=== PATIENT | female | born 1970 | race Caucasian/White ===

== ENCOUNTER 2018-08-09 11:19 | Emergency (ER) | payer BC ==
[2018-08-09] MEDS ORDERED: NS 0.9% 1000 ML* 1,000 ML IV ONE (11:50)
[2018-08-09] MEDS ORDERED: Morphine INJ* 4 MG/ML 1 ML SYRINGE (NEW SYRINGE VERSION) IV ONE ×2 (11:52→12:16)
[2018-08-09] MEDS ORDERED: Ondansetron INJ* 2 MG/ML VIAL IV ONE (11:52)
[2018-08-09 12:06] LABS: ABS Basophils 0.1 10^3/ul (0-0.2); ABS Eosinophils 0.2 10^3/ul (0-0.6); ABS Lymphocytes 2.1 10^3/ul (1.0-4.8); ABS Monocytes 0.5 10^3/ul (0-0.8); ABS Neutrophils 3.1 10^3/ul (1.5-7.7); ABS Nucleated RBC 0 10^3/ul; Eosinophil % 3.2 % (0-6); Hematocrit 43 % (35-47); Hemoglobin 14.1 g/dl (12.0-16.0); Lymphocyte % 35.1 % (25-47); Mean Corpuscular HGB Conc 33 g/dl (31-36); Mean Corpuscular Hemoglobin 30 pg (27-31); Mean Corpuscular Volume 89 fL (80-97); Mean Platelet Volume 8.1 um3 (7.4-10.4); Nucleated Red Blood Cells % 0; Platelet Count 280 10^3/ul (150-450); Red Blood Count 4.79 10^6/ul (4.00-5.40); Red Cell Distribution Width 14 % (10.5-15)
[2018-08-09] MEDS ORDERED: Acetaminophen TAB* 325 MG PO ONE (12:14)
[2018-08-09] MEDS ORDERED: metroNIDAZOLE TAB* 250 MG PO ONE (12:14)
[2018-08-09] MEDS ORDERED: cefTRIAXone VIAL(*) 250 MG VIAL IM ONE (12:14)
[2018-08-09] MEDS ORDERED: Raltegravir* 400 MG TAB PO ONE (12:14)
[2018-08-09] MEDS ORDERED: Levonorgestrel 1.5 MG TAB PO ONE (12:14)
[2018-08-09] MEDS ORDERED: Tenofovir/Emtricitab 200/300 * TAB PO ONE (12:14)
[2018-08-09] MEDS ORDERED: Azithromycin TAB* 250 MG PO ONE (12:14)
[2018-08-09 12:16] LABS: INR 0.98 (0.77-1.02)
[2018-08-09 12:25] LABS: EGFR Non-African American 81.8 (>60)
--- NOTE | 2018-08-09 12:31 | RAD ---
INDICATION: Right lower quadrant pain. COMPARISON: There are no relevant prior studies available for comparison. TECHNIQUE: Multiple real-time images of the right lower quadrant were obtained using a graded compression technique. FINDINGS: No free intraperitoneal fluid or localized fluid collections are seen. The appendix was not visualized limiting the study. IMPRESSION: THE APPENDIX WAS NOT VISUALIZED LIMITING THE STUDY, DEPENDING ON THE PATIENT'S CLINICAL STATUS CONSIDER A CT OF THE ABDOMEN AND PELVIS WITH INTRAVENOUS AND ORAL CONTRAST FOR FURTHER EVALUATION.
--- NOTE | 2018-08-09 12:39 | RAD ---
INDICATION: Right lower quadrant pain. COMPARISON: Comparison is made with a prior pelvic ultrasound from every second 2008. TECHNIQUE: Multiple real-time transabdominal images of the pelvis were obtained. FINDINGS: The uterus is normal in size and shape. The uterus measured 9.2 x 4.1 x 5.3 cm. The endometrial echo measured 0.9 cm in thickness. There is a small hypoechoic mass in the anterior portion of the body of the uterus consistent with a leiomyoma measuring 2.1 x 2.7 x 2.0 cm. The right ovary measured 2.1 x 1.8 x 1.3 cm. The left ovary measured 4.1 x 2.6 x 3.2 cm. There is vascular flow within both ovaries. There is a small slightly complex cyst present within the left ovary with a thin internal septation measuring 2.5 x 2.3 x 2.3 cm. No free intraperitoneal fluid is seen. IMPRESSION: 1. SMALL SLIGHTLY COMPLEX LEFT OVARIAN CYST. 2. SMALL INTRAMURAL LEIOMYOMA.
--- NOTE | 2018-08-09 12:39 | ED ---
Abdominal Pain/Female - HPI Summary HPI Summary: Patient presents with abrupt onset right-sided abdominal pain that started at 3 AM this morning. This pain woke her from sleep and was 10 out of 10. Currently she is about a 5 out of 10 in pain. She reports this as sharp stabbing pain with associated symptoms of nausea intermittently. No vomiting or diarrhea. She denies fever, chills, chest pain, shortness of breath. She has had 2 C-sections, otherwise no abdominal surgeries. She admits currently her menstrual cycle is "all over the place". Sometimes she has her period multiple times a month and sometimes she skips month; sometimes the flow is light, sometimes it's heavy. She is being followed by her primary care provider for this condition. She denies any bleeding vaginally at this time. She also denies any change in her vaginal discharge including odor, consistency , irritation as well as h/o vaginal infection. She is sexually active with her and denies dyspareunia. Of note, her recent medical history includes workup for her urinary tract. She went to [facility] for her annual physical exam about 1 month ago and they discovered painless hematuria. Patient reports she did have intermittent cramping at times in her lower pelvis but nothing consistent. With these findings, she was referred to a urologist. She's had a CT of her abdomen and pelvis with contrast 3 weeks ago which revealed a cyst on her right kidney. Last week she had a cystoscopy - she believes some biopsies were taken and when asked if there are any abnormalities found, she said "no". She also had an ultrasound of her right kidney yesterday - unsure of results but has a follow- up with urology this week. Throughout the course of this workup, she denies having pain symptoms like she is having today. She does report urinary urge with frequency and small void volume since cystoscopy. Reports she has not taken any medication since cystoscopy and again denies flank pain, fever, chills , nausea other than with pain this morning and no vomiting or diarrhea. Bowel movements have been normal for her. Fam h/o sig for ovarian CA, esophageal CA. - History of Current Complaint Chief Complaint: EDFlankPain Stated Complaint: FLANK PAIN Time Seen by Provider: 08/09/18 11:32 Hx Obtained From: Patient, Family/Parts Classifier - mom Pain Intensity: 7 Allergies/Adverse Reactions: Allergies Allergy/AdvReac Type Severity Reaction Status Date / Time No Known Allergies Allergy Verified 08/09/18 11:30 PMH/Surg Hx/FS Hx/Imm Hx Previously Healthy: Yes Endocrine/Hematology History: Denies: Hx Anticoagulant Therapy, Hx Blood Disorders, Autoimmune Disease History: Reports: Other Problems/Disorders - Rt kidney cyst per pt - evaluated at [facility] urolog Musculoskeletal History: Reports: Hx Rheumatoid Arthritis Sensory History: Reports: Hx Contacts or Glasses Opthamlomology History: Reports: Hx Contacts or Glasses Neurological History: Reports: Hx Migraine - takes rescue med PRN - Cancer History Hx Chemotherapy: No Hx Radiation Therapy: No Infectious Disease History: No Infectious Disease History: Denies: Traveled Outside the [place] in Last 30 Days - Family History Known Family History: Positive: Other - ovarian ca, esophageal ca - Social History Lives: With Family - Alcohol Use: Occasionally Alcohol Amount: special occasions Hx Substance Use: No Substance Use Type: Reports: None Hx Tobacco Use: Yes Smoking Status (MU): Current Every Day Smoker Type: Cigarettes Amount Used/How Often: 1/2-1PPD Have You Smoked in the Last Year: Yes Review of Systems Constitutional: Negative Negative: Fever, Chills, Fatigue Cardiovascular: Negative Respiratory: Negative Positive: Abdominal Pain, Nausea. Negative: Vomiting, Diarrhea Positive: see HPI Skin: Negative Neurological: Negative Psychological: Normal All Other Systems Reviewed And Are Negative: Yes Physical Exam Triage Information Reviewed: Yes Vital Signs On Initial Exam: Initial Vitals Temp Pulse Resp BP Pulse Ox 97.6 F 83 16 150/94 99 08/09/18 11:25 08/09/18 11:25 08/09/18 11:25 08/09/18 11:25 08/09/18 11:25 Vital Signs Reviewed: Yes Appearance: Positive: Well-Appearing, Well-Nourished, Pain Distress - mild at rest - moderate w/ palpation Skin: Positive: Warm, Skin Color Reflects Adequate Perfusion, Dry Head/Face: Positive: Normal Head/Face Inspection Eyes: Positive: Normal, EOMI, Conjunctiva Clear - anicteric sclera ENT: Positive: Hearing grossly normal, Pharynx normal - mucosa moist Neck: Positive: Supple Respiratory/Lung Sounds: Positive: Clear to Auscultation, Breath Sounds Present. Negative: Rales, Rhonchi, Wheezes Cardiovascular: Positive: Normal, RRR, S1, S2. Negative: Leg Edema Left, Leg Edema Right Abdomen Description: Positive: No Organomegaly, Soft, Distended, McBurney's Point Tenderness - no rebounding; mild pain w/ psoas, no pain w/ obturator, no pain w/ heel tap - no other areas of ab. Negative: CVA Tenderness (R), CVA Tenderness (L), Guarding, Hernia @, Pulsatile Mass Bowel Sounds: Positive: Present Pelvic Exam: Positive: Other - deferred Musculoskeletal: Positive: Normal, Strength/ROM Intact Neurological: Positive: Normal, Sensory/Motor Intact, Alert, Oriented to Person Place, Time, CN Intact II-III Psychiatric: Positive: Normal Diagnostics - Vital Signs Vital Signs Temp Pulse Resp BP Pulse Ox 08/09/18 11:25 97.6 F 83 16 150/94 99 - Laboratory Lab Results: Lab Results 08/09/18 08/09/18 08/09/18 Range/Units 11:55 11:55 11:55 WBC 6.0 (3.5-10.8) 10^3/ul RBC 4.79 (4.00-5.40) 10^6/ul Hgb 14.1 (12.0-16.0) g/dl Hct 43 (35-47) % MCV 89 (80-97) fL MCH 30 (27-31) pg MCHC 33 (31-36) g/dl RDW 14 (10.5-15) % Plt Count 280 (150-450) 10^3/ul MPV 8.1 (7.4-10.4) um3 Neut % (Auto) 50.9 (38-83) % Lymph % (Auto) 35.1 (25-47) % [place] % (Auto) 8.9 H (0-7) % Eos % (Auto) 3.2 (0-6) % Baso % (Auto) 1.9 (0-2) % Absolute Neuts (auto) 3.1 (1.5-7.7) 10^3/ul Absolute Lymphs (auto) 2.1 (1.0-4.8) 10^3/ul Absolute Monos (auto) 0.5 (0-0.8) 10^3/ul Absolute Eos (auto) 0.2 (0-0.6) 10^3/ul Absolute Basos (auto) 0.1 (0-0.2) 10^3/ul Absolute Nucleated RBC 0 10^3/ul Nucleated RBC % 0 INR (Anticoag Therapy) 0.98 (0.77-1.02) APTT 34.4 (26.0-36.3) seconds Sodium 139 (135-145) mmol/L Potassium 3.7 (3.5-5.0) mmol/L Chloride 109 (101-111) mmol/L Carbon Dioxide 26 (22-32) mmol/L Anion Gap 4 (2-11) mmol/L BUN 9 (6-24) mg/dL Creatinine 0.75 (0.51-0.95) mg/dL Est GFR ( Amer) 99.0 (>60) Est GFR (Non-Af Amer) 81.8 (>60) BUN/Creatinine Ratio 12.0 (8-20) Glucose 85 (70-100) mg/dL Lactic Acid (0.5-2.0) mmol/L Calcium 9.4 (8.6-10.3) mg/dL Magnesium 2.2 (1.9-2.7) mg/dL Total Bilirubin 0.50 (0.2-1.0) mg/dL AST 13 (13-39) U/L ALT 10 (7-52) U/L Alkaline Phosphatase 52 (34-104) U/L C-Reactive Protein < 1.00 (<8.01) mg/L Total Protein 7.1 (6.4-8.9) g/dL Albumin 4.3 (3.2-5.2) g/dL Globulin 2.8 (2-4) g/dL Albumin/Globulin Ratio 1.5 (1-3) Lipase 23 (11.0-82.0) U/L Beta HCG, Quant 0.82 mIU/mL 08/09/18 Range/Units 11:55 WBC (3.5-10.8) 10^3/ul RBC (4.00-5.40) 10^6/ul Hgb (12.0-16.0) g/dl Hct (35-47) % MCV (80-97) fL MCH (27-31) pg MCHC (31-36) g/dl RDW (10.5-15) % Plt Count (150-450) 10^3/ul MPV (7.4-10.4) um3 Neut % (Auto) (38-83) % Lymph % (Auto) (25-47) % [place] % (Auto) (0-7) % Eos % (Auto) (0-6) % Baso % (Auto) (0-2) % Absolute Neuts (auto) (1.5-7.7) 10^3/ul Absolute Lymphs (auto) (1.0-4.8) 10^3/ul Absolute Monos (auto) (0-0.8) 10^3/ul Absolute Eos (auto) (0-0.6) 10^3/ul Absolute Basos (auto) (0-0.2) 10^3/ul Absolute Nucleated RBC 10^3/ul Nucleated RBC % INR (Anticoag Therapy) (0.77-1.02) APTT (26.0-36.3) seconds Sodium (135-145) mmol/L Potassium (3.5-5.0) mmol/L Chloride (101-111) mmol/L Carbon Dioxide (22-32) mmol/L Anion Gap (2-11) mmol/L BUN (6-24) mg/dL Creatinine (0.51-0.95) mg/dL Est GFR ( Amer) (>60) Est GFR (Non-Af Amer) (>60) BUN/Creatinine Ratio (8-20) Glucose (70-100) mg/dL Lactic Acid 0.8 (0.5-2.0) mmol/L Calcium (8.6-10.3) mg/dL Magnesium (1.9-2.7) mg/dL Total Bilirubin (0.2-1.0) mg/dL AST (13-39) U/L ALT (7-52) U/L Alkaline Phosphatase (34-104) U/L C-Reactive Protein (<8.01) mg/L Total Protein (6.4-8.9) g/dL Albumin (3.2-5.2) g/dL Globulin (2-4) g/dL Albumin/Globulin Ratio (1-3) Lipase (11.0-82.0) U/L Beta HCG, Quant mIU/mL Result Diagrams: 08/09/18 11:55 08/09/18 11:55 Lab Statement: Any lab studies that have been ordered have been reviewed, and results considered in the medical decision making process. Re-Evaluation - Re-Evaluation First Eval Change: Improved - pt's pain from 5/10 to 4/10 w/o pain medication Second Eval Change: Improved - pt's pain almost resolved w/ IV morphine - feels better - does not want additional pain medication at this time Abdominal Pain Fem Course/Dx - Course Course Of Treatment: Patient presents with abrupt onset right lower quadrant pain that woke her from sleep at 3:00 this morning. She is tender in the right lower quadrant only without radiating pain. No GI symptoms otherwise. She does have some mild symptoms however admits to a cystoscopy last week. No flank pain. Labs including urine are unremarkable for inflammation or infection. Since she just had a CT abdomen and pelvis with contrast within the past 3 weeks, ultrasounds were ordered to assess her appendix as well as her reproductive organs. Appendix unfortunately was not visualized but secondary findings such as fluid/inflammation were also not reported. She has a left ovarian cyst that is small in size and does not correlate with her pain. Additionally, she does not have torsion bilaterally. She does have a leiomyoma and is aware she needs to follow-up with her PCP or pan pusher regarding this finding. Discussed proceeding with a repeat CT abdomen and pelvis with contrast to better evaluate her appendix however given her history of present illness and the lack of remarkable findings in her workup today, she declined CT and will follow-up with her PCP. She is also aware if symptoms worsen or new danger signs and symptoms develop she may return to the emergency department at any time. Will be DC'd with anti-inflammatory pain meds as well as supportive care such as low residual diet, warm compresses and rest. Advised patient to follow-up with urology this week as scheduled. - Diagnoses Provider Diagnoses: RLQ abdominal pain Discharge - Sign-Out/Discharge Documenting (check all that apply): Patient Departure - Discharge Plan Condition: Stable Disposition: HOME Prescriptions: Ibuprofen TAB* [Motrin TAB* 800 MG] 800 mg PO Q8HR PRN #20 tab PRN Reason: Pain Patient Education Materials: Abdominal Pain (ED) Referrals: Violet Orellana NP [Primary Care Provider] - Additional Instructions: Try pain medication as directed, warm compresses/bathes, low residual diet, and rest until seen by urology this week. You may also follow-up with your PCP this week as they have a copy of your CT findings and may order additional testing as needed. *if in the meantime you develop worsening of symptoms or chest pain, difficulty breathing or swallowing, bloody stools, urinary symptoms, diarrhea, vomiting, etc, return to ED - Billing Disposition and Condition Condition: STABLE Disposition: Home
[2018-08-09 13:24] LABS: Urine Appearance Clear; Urine Blood Negative (Negative); Urine Color Yellow; Urine Ketones Negative (Negative); Urine Protein Negative (Negative); Urine Specific Gravity 1.009 (1.010-1.030); Urine Urobilinogen Negative (Negative)
[2018-08-09 15:02] VITALS: BP 107/56
== END 2018-08-09 14:59 | disposition home or self-care (01) ==
LOC: ED 11:19
DX: R10.31 Right lower quadrant pain (principal); N83.292 Other ovarian cyst, left side; D25.1 Intramural leiomyoma of uterus; R11.0 Nausea; Z80.41 Family history of malignant neoplasm of ovary; Z80.0 Family history of malignant neoplasm of digestive organs; F17.210 Nicotine dependence, cigarettes, uncomplicated
CPT/HCPCS: 36415; 76705; 76856; 80053; 81003; 83605; 83690; 83735; 84702; 85025; 85610; 85730; 86140; 96374; 96375; 99282; J2270; J2405